=== PATIENT | female | born 1950 | race Two or more races ===

== ENCOUNTER 2024-04-17 09:40 | Day surgery (SDC) | payer MEDICARE, MEDICAID, SELFPAY ==
--- NOTE | 2024-04-13 06:17 | EKG_ITS ---
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
[2024-04-13 08:24] VITALS: BMI 27.4
[2024-04-13 10:17] LABS: Basophils % (Auto) 1 % (0-2.5); Eosinophils # (Auto) 0.1 Thou/mm3 (0.0-0.5); Eosinophils % (Auto) 2 % (0-10); Hematocrit 41.5 % (36.0-46.0); Hemoglobin 14.3 g/dL (12.0-16.0); Immature Granulocytes % (Auto) 0 % (0-0); Immature Granulocytes Auto 0.01 Thou/mm3 (0.00-0.00); Lymphocytes # (Auto) 2.4 Thou/mm3 (1.0-4.8); Lymphocytes % (Auto) 38 % (10-50); Mean Corpuscular HGB Conc 34.5 g/dl (31.0-37.0); Mean Corpuscular Hemoglobin 31.2 pg (25.0-35.0); Mean Corpuscular Volume 91 fL (80-100); Monocytes # (Auto) 0.5 Thou/mm3 (0.0-0.8); Monocytes % (Auto) 8 % (0-12); Neutrophils # (Auto) 3.3 Thou/mm3 (1.8-7.7); Neutrophils % (Auto) 52 % (37-80); Nucleated Red Blood Cell % 0 /100 WBC (0); Platelet Count 198 Thou/mm3 (140-440); RDW Standard Deviation 42.1 fL (36.4-46.3); Red Blood Count 4.58 Miln/mm3 (4.00-5.20); White Blood Count 6.4 Thou/mm3 (3.6-11.0)
[2024-04-13 10:39] LABS: T4 (Thyroxine) 10.5 mcg/dL (4.5-10.9)
[2024-04-13 10:45] LABS: Alanine Aminotransferase 25 U/L (10-49); Albumin/Globulin Ratio 1.9 (1.2-2.2); Alkaline Phosphatase 72 U/L (46-116); Anion Gap 9 (7-16); Aspartate Amino Transferase 13 U/L (0-34); BUN/Creatinine Ratio 19 Ratio (12-20); Bilirubin,Total 0.7 mg/dL (0.3-1.2); Blood Urea Nitrogen 13 mg/dL (9-23); Calcium 10.8 mg/dL (8.3-10.6); Calcium (Corrected) 10.8 mg/dL (8.5-10.1); Carbon Dioxide 24.2 mMol/L (20.0-31.0); Chloride 104 mMol/L (98-107); Creatinine (Component) 0.7 mg/dL (0.6-1.3); Estimated Creatinine Clearance 65.7 mL/min (>60); Globulin 2.6 gm/dL (2.3-3.5); Glucose 103 mg/dL (74-106); Osmolality,Calculated 273 (275-295); Potassium 4.1 mMol/L (3.4-5.1); Sodium 137 mMol/L (136-145); Thyroid Stimulating Hormone 1.29 uIU/mL (0.55-4.78); Total Protein 7.6 gm/dL (5.7-8.2); eGFR > 60 See Note
[2024-04-17] VITALS (17 sets, daily range): BP systolic 125–159; BP diastolic 73–86; PULSE 88–101; RESP 13–20; TEMP 36.2–36.9; O2SAT 94–98; BMI 27.2; BMI 27.8
[2024-04-17] MEDS: RINGERS LACTATED 1000 ML 1,000 ML 20 ML IV (10:19)
--- NOTE | 2024-04-17 10:45 | CHAP ---
Prayed with patient. Family member translated for me.
[2024-04-17] MEDS: SCOPOLAMINE 1 MG TDSY TOP (11:51)
--- NOTE | 2024-04-17 13:26 | SUR.PHASEI ---
pt received from OR in recovery bay 8. pt obtunded, breathing unlabored on oxymask 4l, oral airway in place. v/s stable. pt dressing to neck cdi. report received from Dr. Ruibo and Natalie DELGADO.
--- NOTE | 2024-04-17 13:48 | ESOP_ITS ---
Date of Procedure 04/17/24 Pre Op Diagnosis Bilateral thyroid nodules Post Op Diagnosis Bilateral thyroid nodules Procedure Total thyroidectomy Findings Very enlarged left thyroid lobe displacing trachea slightly to the right. Multiple small nodules on the right lobe Procedure Description Patient brought to the operating room in supine position. After administration of general endotracheal anesthesia, patient's neck was extended and prepped and draped in standard surgical manner. An approximately 6 cm semicircular incision was made approximately 2 fingerbreadths above the sternal notch. Dissection was carried subcutaneous tissue and platysma was divided. Superior and inferior subplatysmal plane were developed. Median raphae was identified and divided. The procedure started on the patient's left where patient was noted to have very large thyroid nodule displacing trachea slightly to the right. The strap muscle on the left side was retracted laterally and the areolar tissue between the strap muscle and the thyroid tissues were divided. The median thyroid vein was identified and ligated. The superior pole vessels were mobilized and divided with 0 silk tie. The inferior vessels were then individually identified and ligated. The recurrent laryngeal nerve on the left side was identified and kept away from dissection proceeded all times. I was able to identify the superior parathyroid gland and preserved it, I was unable to clearly identify the inferior parathyroid gland. Once the vessels were ligated the thyroid was from the anterior surface of the trachea by dividing the ligament of Alberto. I then turned my attention to patient's right side. The thyroid was not enlarged however patient was noted to have multiple small nodules. The procedure performed in similar fashion. Recurrent laryngeal nerve on the right side was identified and preserved. Once again, I was able to identify the super ior parathyroid gland and preserve it, I could not clearly identify the inferior parathyroid gland. The area was copiously thoroughly washed and irrigated, all the fluids were suctioned in the section fluids and clear. Hemostasis was adequate and satisfactory. Topical hemostatic agent snow Surgicel placed on both sides of the neck to further secure hemostasis. Median raphae was then closed with running 2-0 Vicryl. Platysma reapproximated with interrupted sutures using 3-0 Vicryl, and the incision was closed with 4-0 Monocryl subcuticular fashion. Instruments, needle and sponge counts were reported to be correct ?2. Patient tolerated procedure well. She was extubated, breathing spontaneously and without difficulty and was transferred to postanesthesia care in stable condition. Anesthesia GETA and local Pathology / specimen Other (Total thyroid) Estimated Blood Loss 25 Condition Stable Disposition PACU Surgeon Ade Anaya MD Surgical Staff Operation Date: 04/17/24 12:00 Case Staff Anesthesiologist: Terrell Rubio RN First Assistant: Danyelle Charles
[2024-04-17] MEDS: ACETAMINOPHEN IVPB 1,000 MG/100 ML VIAL 250 MG IV (14:06)
[2024-04-17] MEDS: HYDROmorphone INJ 2 MG/ML VIAL 0.4 MG IVP (14:38)
[2024-04-17] MEDS: HYDROmorphone INJ 2 MG/ML VIAL IVP ×2 (15:04→21:03)
--- NOTE | 2024-04-17 17:34 | SUR.PHASEII ---
Report given to Krista DELGADO med/surg. Dressing to neck remain C/D/I. Able to use bedpan for urination, clear yellow urine. No c/o pain or discomfort. No s/o distress or discomfort. Taken to room 359 via bed. Daughter at bedside. Krista DELGADO at bedside. Call light in hand. Bed rails up x2. Bed brake on. Aware to call for assistance OOB.
--- NOTE | 2024-04-17 17:34 | PC.NURSE ---
report received from Nurse Tello from PACU
[2024-04-17] MEDS: SUMAtriptan 25 MG TABLET 50 MG PO (18:39)
--- NOTE | 2024-04-17 21:42 | PC.NURSE ---
patient reported feeling dizziness right after getting dilaudid iv. Pt was assisted to bed. Pt Lying down in bed now.
[2024-04-18] VITALS: BP 126/75; PULSE 111; RESP 16; TEMP 36.4; O2SAT 92
[2024-04-18] MEDS: ACETAMINOPHEN IVPB 1,000 MG/100 ML VIAL 250 MG IV ×2 (00:24→05:33)
[2024-04-18 04:00] VITALS: BP 117/69; PULSE 80; RESP 20; TEMP 36.3; O2SAT 92
[2024-04-18 08:00] VITALS: BP 118/69; PULSE 86; RESP 18; TEMP 36.4; O2SAT 94
[2024-04-18] MEDS: HYDROmorphone INJ 2 MG/ML VIAL IVP (09:06)
--- NOTE | 2024-04-18 11:34 | PD.SURPROG ---
Documentation for date of: 04/18/24 Subjective Subjective Narrative: Patient is seen and examined. She underwent total thyroidectomy yesterday and was kept in the hospital for observation due to pain. Her pain is improving. She is tolerating liquids without nausea or vomiting Exam Vital Signs Temp Pulse Resp BP Pulse Ox O2 Del Method O2 Flow Rate 97.5 F 86 18 118/69 94 L Room Air 2 04/18/24 08:00 04/18/24 08:00 04/18/24 08:00 04/18/24 08:00 04/18/24 08:00 04/18/24 08:00 04/17/24 15:25 Constitutional Constitutional: no acute distress Routine Neck Exam Comments: Incision with dressings clean, dry and intact Assessment & Plan Assessment Additional comments: Postop day #1 status post total thyroidectomy Plan Will discharge home. Procedures Procedures Total thyroidectomy
[2024-04-18 12:00] VITALS: BP 123/71; PULSE 98; RESP 18; TEMP 36.8; O2SAT 94
[2024-04-18 12:24] VITALS: RESP 96
== END 2024-04-18 14:22 | disposition home or self-care (01) ==
LOC: S2EX 14:44 → S3NX 04-18 07:01
PROVIDERS: PCP Family Medicine; Referring Provider Surgery; Visit Provider Surgery
PROC: (CPT 60240; principal; 2024-04-17 11:45)
DX: E04.2 Nontoxic multinodular goiter (principal); Z01.810 Encounter for preprocedural cardiovascular examination
CPT/HCPCS: 60240; 36415; 80053; 84436; 84443; 85025; 93005; A4217; A4649; J0131; J0690; J2250; J2704; J3490; J7120; A9270

== ENCOUNTER 2024-05-11 12:43 | Emergency (ER) | payer MEDICARE, MEDICAID, SELFPAY ==
--- NOTE | 2024-05-11 12:52 | PC.NURSE ---
Pt. states she has a WAITE to the right side of her head.
[2024-05-11 12:55] VITALS: BP 133/83; PULSE 92; RESP 19; TEMP 37.2; O2SAT 95; BMI 26.5
--- NOTE | 2024-05-11 13:01 | XR_ITS ---
Examination: PA view TECHNIQUE: Upright PA single view Exam date and time: May 11, 2024 1327 hours Comparison October 22, 2015 INDICATIONS: Chest pain beginning 3 weeks ago. FINDINGS: Normal heart size Subsegmental atelectasis left base No lobar pneumonia or pulmonary edema Moderate osteopenia IMPRESSION: No lobar pneumonia or pulmonary edema
--- NOTE | 2024-05-11 13:01 | EKG_ITS ---
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
--- NOTE | 2024-05-11 13:03 | PD.EDWEAK ---
ED Weakness RME/HPI General Chief complaint: Weakness Stated complaint: Weak, nausea, dizzy, tired Time Seen by Provider: 05/11/24 12:49 Arrival date/time: 05/11/24 12:43 RME / HPI RME / HPI Narrative: 74-year-old female patient with significant history of hyponatremia in the past, interstitial cystitis, hypothyroidism, gastritis, was brought in by family for evaluation regarding generalized body weakness. Onset of symptoms for the last 1 week's generalized body weakness, on and off nausea, feeling tired, dizzy, severity mild. Family is concerned because she does have thyroidectomy about 3 weeks ago. Currently taking 100 microgram of levothyroxine for more than 2 weeks now. Patient denies any fever denies any sore throat denies any vomiting diarrhea or other complaints. Related Data Home Medications ?Medication ?Instructions ?Recorded ?Confirmed sumatriptan succinate 50 mg tablet 50 mg PO QDAY PRN HEADACHE 08/21/13 04/17/24 (MIGRAINE) ##0 gabapentin 600 mg tablet 600 mg PO BID #0 tabs 09/05/16 04/17/24 pentosan polysulfate sodium 100 mg 100 mg PO TID #0 caps 09/05/16 04/17/24 capsule (Elmiron) celecoxib 200 mg capsule 200 mg PO DAILY 05/02/19 04/17/24 alendronate 70 mg tablet 70 mg PO QWEEK 04/13/24 04/17/24 amlodipine 5 mg tablet 5 mg PO QDAY 04/13/24 04/17/24 loratadine 10 mg tablet 10 mg PO QDAY 04/13/24 04/17/24 meclizine 25 mg tablet 25 mg PO BID PRN Dizziness 04/13/24 04/17/24 pantoprazole 40 mg tablet,delayed 40 mg PO QDAY 04/13/24 04/17/24 release (Protonix) cyclobenzaprine 10 mg tablet 10 mg PO BID PRN Muscle Spasm 04/16/24 04/17/24 Previous Rx's ?Medication ?Instructions ?Recorded acetaminophen 500 mg tablet 1,000 mg (2 x 500 mg) PO Q8HR PRN 04/17/24 (Tylenol Extra Strength) pain (scale score 4-6) #30 tabs calcium carbonate 400 mg PO BID #60 tabs 04/17/24 docusate sodium 100 mg capsule 100 mg PO BID #40 caps 04/17/24 (Colace) hydromorphone 2 mg tablet 2 mg PO Q6H PRN pain #20 tabs 04/17/24 (Dilaudid) levothyroxine 100 mcg tablet 100 mcg PO QDAY #30 tabs 04/17/24 (Synthroid) ondansetron 4 mg disintegrating 4 mg PO Q6H PRN nausea and 04/17/24 tablet vomiting #20 tabs scopolamine base 1 mg over 3 days 1 mg topical Q3D nausea #4 ea 04/18/24 transdermal patch Allergies Allergy/AdvReac Type Severity Reaction Status Date / Time hydrocodone Allergy Intermediate NAUSEA Verified 04/17/24 10:11 carisoprodol Allergy Mild SEVERE Verified 04/17/24 10:11 DIZZINESS AND VOMITNG doxazosin Allergy Mild ITCHING Verified 04/17/24 10:11 fentanyl Allergy Mild Nausea Verified 04/17/24 10:11 tramadol Allergy Mild VOMITNG Verified 04/17/24 10:11 AND ITCHING morphine AdvReac Intermediate Nausea Verified 04/17/24 10:11 codeine AdvReac Mild NAUSEA Verified 04/17/24 10:11 Review of Systems Review of Systems Narrative Review of Systems: Review of system reviewed and within normal limits except mentioned in HPI ED Exam Narrative Physical exam: VITAL SIGNS: Reviewed. GENERAL APPEARANCE: Alert and interactive, follows commands, no acute distress, HEAD AND FACE: Non-traumatic. ENT: PERRL, pink conjunctivitis, eyelid no trauma, Mucous membrane moist. NECK: Supple, nontender, no nuchal rigidity. CHEST: No tenderness, no crepitus, no paradoxical movement, no retractions. LUNGS: Clear, well ventilated, symmetric, no rales, no wheezing, no ronchi, no stridor, good breath sounds bilaterally. HEART: Regular rate, regular rhythm, no murmur, no gallops. ABDOMEN: Soft, positive bowel sounds, nondistended, no guarding, nontender, no rebound, no masses, RECTAL: Deferred. GENITAL: Deferred. NEUROLOGICAL: Gross motor function intact sensory function intact, Appropriate for age. MUSCULOSKELETAL: low back nontender, full range of motion. EXTREMITIES: Nontender, full range of motion. SKIN: Color pink, dry, no rash, no lacerations, no abrasions, no contusions. LYMPHATICS: Deferred. Course Quality Measures none Orders Category Date Time Status Bedside COVID-19 Antigen Test NOW Care 05/11/24 13:01 Active Bedside Influenza A&B Antigen Test NOW Care 05/11/24 13:02 Completed EKG (ED ONLY) *Do not use* NOW Care 05/11/24 13:02 Completed EKG (ED Only) Stat Exams 05/11/24 13:01 Draft XR chest 1V Stat Exams 05/11/24 13:01 Completed B-Type Natriuretic Peptide Stat Lab 05/11/24 13:19 Completed CBC Stat Lab 05/11/24 13:19 Completed Comprehensive Metabolic Panel Stat Lab 05/11/24 13:19 Completed Free T4 (Free Thyroxine) Stat Lab 05/11/24 13:19 Completed Partial Thromboplastin Time Stat Lab 05/11/24 13:19 Completed TSH [Thyroid Stimulating Hormone] Stat Lab 05/11/24 13:19 Completed Troponin I Stat Lab 05/11/24 13:19 Completed Urinalysis, C/S if Indicated Stat Lab 05/11/24 13:35 Completed Ondansetron Odt [Zofran Odt] Med 05/11/24 14:04 Discontinued 4 mg PO X1 ONE mg Hyd/Al Hyd/Markos Susp [Maalox Susp] Med 05/11/24 14:04 Discontinued 30 ml PO X1 ONE Vital Signs Vital signs: Vital Signs Temperature 98.9 F 05/11/24 12:55 Pulse Rate 92 05/11/24 12:55 Respiratory Rate 19 05/11/24 12:55 Blood Pressure 133/83 H 05/11/24 12:55 Pulse Oximetry (%) 95 05/11/24 12:55 Oxygen Delivery Method Room Air 05/11/24 12:55 Weakness MDM Narrative MDM Narrative:: 74-year-old female patient with significant history of hyponatremia in the past, interstitial cystitis, hypothyroidism, gastritis, was brought in by family for evaluation regarding generalized body weakness. Onset of symptoms for the last 1 week's generalized body weakness, on and off nausea, feeling tired, dizzy, severity mild. Family is concerned because she does have thyroidectomy about 3 weeks ago. Currently taking 100 microgram of levothyroxine for more than 2 weeks now. Patient denies any fever denies any sore throat denies any vomiting diarrhea or other complaints. Patient TSH was noted to be 0.04, T4 of 1.84. This results was relayed to patient's PCP, Dr. Venu Ruvalcaba, and told him that patient is currently taking levothyroxine 100 mcg daily however the doctor told me do not adjust medication, and told me to asked the patient to follow-up in the clinic next week so we can repeat the thyroid test. Plan of care discussed with the patient and family. The rest of the laboratory workup all came back normal. I personally reviewed and interpreted the x-ray of this patient. There is no acute abnormalities found, no infiltrates no pneumothorax no hemothorax normal chest x-ray. Review of other structures was without significant abnormal findings also. I additionally reviewed the radiologist report and agree with the interpretation. EKG showed normal sinus rhythm, ventricular rate of 84 bpm, PA interval 139 MS, no ST segment elevation depression noted. Patient data External records reviewed:: None Clinical information provided by:: none Social determinants that could affect healthcare access:: none Patient has the following chronic illnesses:: History of hypothyroidism, interstitial cystitis, gastritis, and hyponatremia How is presenting disease/condition affected by chronic disease/condition?: exacerbated by Evaluation data The following diagnostics were reviewed and interpreted by me:: lab results, radiology exam(s) and EKG tracing(s) Lab and/or radiology exams considered but not ordered:: None Interpretation Summary: See results in [facility] Medications / Prescriptions Medications or Prescriptions considered but not ordered:: None Medication administrations:: Medication Administration History Discontinued Medications Al Hydrox/Mg Hydrox/Simethicone (Mg Hyd/Al Hyd/Markos (Maalox Reg) Susp 30 Ml Udc) 30 ml PO X1 ONE Stop: 05/11/24 14:05 Last Admin: 05/11/24 14:20 Dose: 30 ml Documented By: [facility] Ondansetron HCl (Ondansetron Odt 4 Mg Tabrap) 4 mg PO X1 ONE; Protocol Stop: 05/11/24 14:05 Last Admin: 05/11/24 14:19 Dose: 4 mg Documented By: [facility] Maalox and Zofran Consultations Consultation(s) initiated? (list below): Yes Consultation #1 (Physician, Specialty, Details): I spoke with patient PCP, Dr. Venu Ruvalcaba, thank you DrJose Diagnosis Weakness Differential Diagnosis: anemia, hypothyroidism, dehydration and other (Hyper thyroidism) Most likely diagnosis given after review of the tests above:: Generalized weakness Admission Indicated Admission indicated?: not indicated Admission Request Was there a request for admission?: No Disposition Plan Disposition Plan: Discharge Discharge Attestation Discharge Attestation: The patient and all family members were given an opportunity to ask questions and understood the discharge instructions. Discharge instructions specifically effects, indications for sooner follow up or return to the emergency department, and the expected course of current diagnosis. Patient condition: Stable Discharge Plan Plan Patient Disposition: HOME (Self Care) Disposition Comment: stable Prescriptions/Referrals Prescriptions/Med Rec: No Action sumatriptan succinate 50 MG tablet 50 mg PO QDAY PRN (Reason: HEADACHE (MIGRAINE)) Qty: 0 Elmiron 100 MG capsule 100 mg PO TID Qty: 0 gabapentin 600 MG tablet 600 mg PO BID Qty: 0 celecoxib 200 mg Capsule 200 mg PO DAILY alendronate 70 mg Tablet 70 mg PO QWEEK amlodipine 5 mg Tablet 5 mg PO QDAY meclizine 25 mg Tablet 25 mg PO BID PRN (Reason: Dizziness) pantoprazole [Protonix] 40 mg Tablet,Delayed Release (Dr/Ec) 40 mg PO QDAY loratadine 10 mg Tablet 10 mg PO QDAY cyclobenzaprine 10 mg Tablet 10 mg PO BID PRN (Reason: Muscle Spasm) levothyroxine [Synthroid] 100 mcg tablet 100 mcg PO QDAY Qty: 30 3RF docusate sodium [Colace] 100 mg capsule 100 mg PO BID Qty: 40 0RF calcium carbonate 400 mg calcium (1,000 mg) tablet,chewable 400 mg PO BID Qty: 60 0RF ondansetron 4 mg tablet,disintegrating 4 mg PO Q6H PRN (Reason: nausea and vomiting) Qty: 20 0RF hydromorphone [Dilaudid] 2 mg tablet 2 mg PO Q6H MDD 4 PRN (Reason: pain) Qty: 20 0RF acetaminophen [Tylenol Extra Strength] 500 mg tablet 1,000 mg PO Q8HR PRN (Reason: pain (scale score 4-6)) Qty: 30 0RF scopolamine base 1 mg over 3 days patch 3 day 1 mg topical Q3D Qty: 4 0RF Referrals: Venu Ruvalcaba MD [Primary Care Provider] - In 1 week Problem List Clinical Impression: Weakness Patient/Caregiver Discharge Instructions Discharge Activity: activity as tolerated Education Materials: ED Weakness (Uncertain Cause) Additional Instructions: Thank you for the opportunity for serving you today. You are stable for discharged . You are advised to: Follow-up with your PCP next week Return to ED for worsening of symptoms Increase oral fluids Take medication as prescribed by your PCP/surgeon. Print Language: [place] Stand Alone Forms: Ruth Award Info., Patient Portal Info Letter PA/ASSISTANT PROJECT ENGINEER Supervising Physician PA/ASSISTANT PROJECT ENGINEER Supervising Physician: MD Angela
[2024-05-11 13:42] LABS: B-Type Natriuretic Peptide 22 pg/mL (0-100)
[2024-05-11 13:45] LABS: Basophils % (Auto) 0 % (0-2.5); Eosinophils # (Auto) 0.1 Thou/mm3 (0.0-0.5); Eosinophils % (Auto) 1 % (0-10); Hematocrit 40.4 % (36.0-46.0); Hemoglobin 13.8 g/dL (12.0-16.0); Immature Granulocytes % (Auto) 0 % (0-0); Immature Granulocytes Auto 0.01 Thou/mm3 (0.00-0.00); Lymphocytes # (Auto) 2.5 Thou/mm3 (1.0-4.8); Lymphocytes % (Auto) 33 % (10-50); Mean Corpuscular HGB Conc 34.2 g/dl (31.0-37.0); Mean Corpuscular Hemoglobin 31.1 pg (25.0-35.0); Mean Corpuscular Volume 91 fL (80-100); Monocytes # (Auto) 0.8 Thou/mm3 (0.0-0.8); Monocytes % (Auto) 10 % (0-12); Neutrophils # (Auto) 4.3 Thou/mm3 (1.8-7.7); Neutrophils % (Auto) 56 % (37-80); Nucleated Red Blood Cell % 0 /100 WBC (0); Platelet Count 199 Thou/mm3 (140-440); Red Blood Count 4.44 Miln/mm3 (4.00-5.20); White Blood Count 7.6 Thou/mm3 (3.6-11.0)
[2024-05-11 13:47] LABS: Alanine Aminotransferase 18 U/L (10-49); Albumin, Serum 4.8 gm/dL (3.4-4.8); Albumin/Globulin Ratio 1.8 (1.2-2.2); Alkaline Phosphatase 73 U/L (46-116); Anion Gap 9 (7-16); Aspartate Amino Transferase 17 U/L (0-34); BUN/Creatinine Ratio 27 Ratio (12-20); Bilirubin,Total 0.5 mg/dL (0.3-1.2); Blood Urea Nitrogen 16 mg/dL (9-23); Calcium 10.6 mg/dL (8.3-10.6); Calcium (Corrected) 10.6 mg/dL (8.5-10.1); Carbon Dioxide 24.2 mMol/L (20.0-31.0); Chloride 105 mMol/L (98-107); Creatinine (Component) 0.6 mg/dL (0.6-1.3); Estimated Creatinine Clearance 75.4 mL/min (>60); Free T4 (Free Thyroxine) 1.84 ng/dL (0.89-1.76); Globulin 2.6 gm/dL (2.3-3.5); Glucose 107 mg/dL (74-106); Osmolality,Calculated 276 (275-295); Sodium 138 mMol/L (136-145); Thyroid Stimulating Hormone 0.04 uIU/mL (0.55-4.78); Total Protein 7.4 gm/dL (5.7-8.2); Troponin I < 0.002 ng/mL (0.0-0.045); eGFR > 60 See Note
--- NOTE | 2024-05-11 13:50 | PC.NURSE ---
pt here with c/o generalized weakness, nausea, feeling tired, and abd pain for 7 days. Per family, pt with history of hyponatremia
[2024-05-11 13:52] LABS: Partial Thromboplastin Time 25.6 Seconds (22.0-36.0)
[2024-05-11 14:05] VITALS: BP 130/78; PULSE 80; RESP 16; O2SAT 94
[2024-05-11 14:06] LABS: Collection Type, Urine Clean Catch
[2024-05-11 14:15] LABS: Bilirubin,Urine Negative (Negative); Blood,Urine Trace (Negative); Clarity,Urine Clear (Clear/Hazy); Color,Urine Yellow (Lt Yel-Yel); Culture Indicated,Urine Not Indicated; Glucose, Urine Negative (Negative); Ketones,Urine Negative (Negative); Leukocyte Esterase,Urine Positive (Negative); Nitrite,Urine Negative (Negative); Protein,Urine Trace (Neg - Trace); RBC,Urine 1 /hpf (0-3); Specific Gravity,Urine 1.024 (1.001-1.035); Squamous Epithelial Cell,Urine 2 /hpf (0-5); Urobilinogen,Urine Negative mg/dL (0.0-1.0); WBC,Urine 4 /hpf (0-5)
[2024-05-11] MEDS: ONDANSETRON ODT 4 MG TABRAP PO (14:19)
[2024-05-11] MEDS: MG HYD/AL HYD/SIME (Maalox Reg) SUSP 30 ML UDC PO (14:20)
--- NOTE | 2024-05-11 14:47 | PC.NURSE ---
barbara n/p informed that labs completed
== END 2024-05-11 15:49 | disposition home or self-care (01) ==
PROVIDERS: Nurse Practitioner Family; Emergency Provider Emergency Medicine; PCP Family Medicine
DX: R53.1 Weakness (principal); E03.9 Hypothyroidism, unspecified
CPT/HCPCS: 36415; 71045; 80053; 81001; 83880; 84439; 84443; 84484; 85025; 85730; 87400; 87811; 93005; 99283; Q0162; A9270

== ENCOUNTER 2024-05-16 08:17 | Emergency (ER) | payer MEDICARE, MEDICAID, SELFPAY ==
[2024-05-16 08:18] VITALS: BMI 26.5
--- NOTE | 2024-05-16 08:24 | EKG_ITS ---
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
[2024-05-16 08:34] VITALS: BP 146/84; PULSE 97; RESP 18; TEMP 36.8; O2SAT 98
--- NOTE | 2024-05-16 08:49 | XR_ITS ---
Examination: Shoulder,left, 3 views Technique: Shoulder AP internal rotation, AP external rotation, Y view shoulder, 3 views Exam date and time :May 16, 2024 0855 hours INDICATIONS: Left shoulder pain beginning 4 days ago. FINDINGS: Moderate osteopenia Moderate osteoarthritis glenohumeral joint No fracture or shoulder dislocation IMPRESSION: Moderate osteoarthritis acromioclavicular joint
--- NOTE | 2024-05-16 08:50 | PD.EDRME ---
Rapid Medical Screening Exam E Arrival date/time: 05/16/24 08:17 74-year-old female with a history of a thyroidectomy last month presents to the emergency room with a chief complaint of chest discomfort, left arm numbness, pain x 4 days. I have greeted and performed a focused initial assessment of this patient. A comprehensive ED assessment and evaluation of the patient, analysis of all test results, and completion of the medical decision making process will be conducted by additional ED providers. Chief Complaint: Extremity Problem,Nontraumatic Vital signs: Vital Signs Temperature 98.3 F 05/16/24 08:34 Pulse Rate 97 05/16/24 08:34 Respiratory Rate 18 05/16/24 08:34 Blood Pressure 146/84 H 05/16/24 08:34 Pulse Oximetry (%) 98 05/16/24 08:34 Oxygen Delivery Method Room Air 05/16/24 08:34 Vital signs reviewed by provider: Yes
[2024-05-16 09:14] LABS: Basophils % (Auto) 0 % (0-2.5); Eosinophils # (Auto) 0.1 Thou/mm3 (0.0-0.5); Eosinophils % (Auto) 2 % (0-10); Hematocrit 39.8 % (36.0-46.0); Hemoglobin 13.9 g/dL (12.0-16.0); Immature Granulocytes % (Auto) 0 % (0-0); Immature Granulocytes Auto 0.02 Thou/mm3 (0.00-0.00); Lymphocytes # (Auto) 2.4 Thou/mm3 (1.0-4.8); Lymphocytes % (Auto) 40 % (10-50); Mean Corpuscular HGB Conc 34.9 g/dl (31.0-37.0); Mean Corpuscular Volume 89 fL (80-100); Monocytes # (Auto) 0.5 Thou/mm3 (0.0-0.8); Monocytes % (Auto) 8 % (0-12); Neutrophils % (Auto) 50 % (37-80); Nucleated Red Blood Cell % 0 /100 WBC (0); Platelet Count 212 Thou/mm3 (140-440); RDW Standard Deviation 41.5 fL (36.4-46.3); Red Blood Count 4.49 Miln/mm3 (4.00-5.20); White Blood Count 5.9 Thou/mm3 (3.6-11.0)
[2024-05-16 09:32] LABS: B-Type Natriuretic Peptide < 20 pg/mL (0-100)
[2024-05-16 09:37] LABS: Alanine Aminotransferase 15 U/L (10-49); Albumin, Serum 4.6 gm/dL (3.4-4.8); Albumin/Globulin Ratio 1.5 (1.2-2.2); Alkaline Phosphatase 71 U/L (46-116); Anion Gap 10 (7-16); Aspartate Amino Transferase 19 U/L (0-34); BUN/Creatinine Ratio 17 Ratio (12-20); Bilirubin,Total 0.8 mg/dL (0.3-1.2); Blood Urea Nitrogen 10 mg/dL (9-23); Calcium 10.4 mg/dL (8.3-10.6); Calcium (Corrected) 10.4 mg/dL (8.5-10.1); Carbon Dioxide 21.2 mMol/L (20.0-31.0); Chloride 106 mMol/L (98-107); Creatinine (Component) 0.6 mg/dL (0.6-1.3); Estimated Creatinine Clearance 75.4 mL/min (>60); Glucose 111 mg/dL (74-106); Magnesium 1.8 mg/dL (1.6-2.6); Osmolality,Calculated 273 (275-295); Potassium 3.9 mMol/L (3.4-5.1); Sodium 137 mMol/L (136-145); Thyroid Stimulating Hormone 0.08 uIU/mL (0.55-4.78); Total Protein 7.6 gm/dL (5.7-8.2); Troponin I < 0.002 ng/mL (0.0-0.045); eGFR > 60 See Note
[2024-05-16 10:18] VITALS: BP 144/74; PULSE 80; RESP 22; TEMP 37.2; O2SAT 95
--- NOTE | 2024-05-16 11:18 | PD.EDEXREM ---
ED Extremity Problem RME/HPI General Chief complaint: Extremity Problem,Nontraumatic Stated complaint: LEFT ARM PAIN FOR 4 DAYS Arrival date/time: 05/16/24 08:17 RME / HPI RME / HPI Narrative: 05/16/24 08:17 74-year-old female with a history of a thyroidectomy last month presents to the emergency room with a chief complaint of chest discomfort, left arm numbness, pain x 4 days. I have greeted and performed a focused initial assessment of this patient. A comprehensive ED assessment and evaluation of the patient, analysis of all test results, and completion of the medical decision making process will be conducted by additional ED providers. DR. MORALES MAIN ED EVALUATION 74 year old female with history of thyroidectomy performed [address] Anaya presents to the ED for complaint of left shoulder pain that radiates down her left arm beginning last night and remaining constant since. Described as aching in sensation, rating as severe. Aggravated with any movements of her extremity. Reportedly has had bilateral shoulder tension since her surgery. States at her 2-week follow up appointment with Dr. Anaya she made him aware of symptoms and was advised it was due to not moving her head as she normally would. Patient denies any injury/trauma. Denies chest pain, shortness of breath, cough, or history of similar pain. Related Data Home Medications ?Medication ?Instructions ?Recorded ?Confirmed sumatriptan succinate 50 mg tablet 50 mg PO QDAY PRN HEADACHE 08/21/13 04/17/24 (MIGRAINE) ##0 gabapentin 600 mg tablet 600 mg PO BID #0 tabs 09/05/16 04/17/24 pentosan polysulfate sodium 100 mg 100 mg PO TID #0 caps 09/05/16 04/17/24 capsule (Elmiron) celecoxib 200 mg capsule 200 mg PO DAILY 05/02/19 04/17/24 alendronate 70 mg tablet 70 mg PO QWEEK 04/13/24 04/17/24 amlodipine 5 mg tablet 5 mg PO QDAY 04/13/24 04/17/24 loratadine 10 mg tablet 10 mg PO QDAY 04/13/24 04/17/24 meclizine 25 mg tablet 25 mg PO BID PRN Dizziness 04/13/24 04/17/24 pantoprazole 40 mg tablet,delayed 40 mg PO QDAY 04/13/24 04/17/24 release (Protonix) cyclobenzaprine 10 mg tablet 10 mg PO BID PRN Muscle Spasm 04/16/24 04/17/24 Previous Rx's ?Medication ?Instructions ?Recorded acetaminophen 500 mg tablet 1,000 mg (2 x 500 mg) PO Q8HR PRN 04/17/24 (Tylenol Extra Strength) pain (scale score 4-6) #30 tabs calcium carbonate 400 mg PO BID #60 tabs 04/17/24 docusate sodium 100 mg capsule 100 mg PO BID #40 caps 04/17/24 (Colace) hydromorphone 2 mg tablet 2 mg PO Q6H PRN pain #20 tabs 04/17/24 (Dilaudid) levothyroxine 100 mcg tablet 100 mcg PO QDAY #30 tabs 04/17/24 (Synthroid) ondansetron 4 mg disintegrating 4 mg PO Q6H PRN nausea and 04/17/24 tablet vomiting #20 tabs scopolamine base 1 mg over 3 days 1 mg topical Q3D nausea #4 ea 04/18/24 transdermal patch diazepam 5 mg tablet 5 mg PO BID PRN muscle spasm #6 05/16/24 tabs Allergies Allergy/AdvReac Type Severity Reaction Status Date / Time carisoprodol Allergy Severe SEVERE Verified 05/16/24 08:23 DIZZINESS AND VOMITNG doxazosin Allergy Severe ITCHING Verified 05/16/24 08:23 fentanyl Allergy Severe Nausea Verified 05/16/24 08:23 hydrocodone Allergy Severe NAUSEA Verified 05/16/24 08:23 tramadol Allergy Severe VOMITNG Verified 05/16/24 08:23 AND ITCHING codeine AdvReac Severe NAUSEA Verified 05/16/24 08:23 morphine AdvReac Severe Nausea Verified 05/16/24 08:23 Review of Systems Review of Systems Narrative Review of Systems: Gen: No fever, no chills, no weight loss EYES: No discharge, no visual changes, no pain HEENT: No ear pain, no congestion, no sore throat PULM: no shortness of breath, no cough, no congestion CV: No chest pain, no dyspnea on exertion, no palpitations, no chest tightness GI: No nausea, no vomiting, no diarrhea, no pain, no constipation : No frequency, no urgency,? no dysuria Musc/skel: +bilateral shoulder tension, +left shoulder pain that moves down the left arm, no back pain Skin: No rash, no ecchymosis, no lesions Neuro: No weakness, no headache Past Medical History Past Medical History NEUROLOGIC: Positive Neurological Disorders and Migraine CARDIAC: Positive Cardiac Disorders and Hypertension GASTROINTESTINAL: Positive Gastrointestinal Disorders, Irritable Bowel and Gastroesophageal Reflux Disease GENITOURINARY: Positive Genitourinary Disorders (cystitis) REPRODUCTIVE: Positive Previous Pregnancies MUSCULOSKELETAL: Positive Musculoskeletal Disorders, Arthritis, Osteoporosis and Degenerative Disk Disease ENT: Positive Cataracts PSYCHO/SOCIAL: Positive Depression and Anxiety OTHER HISTORY: Positive Hospitalization (Low sodium), Chicken Pox, Measles and Cancer Family History FAMILY HISTORY: Positive Family Cardiac Disorders, Family Cancer and Family Surgery Surgical History SURGICAL: Positive Hysterectomy and Section Social History SMOKING STATUS: Never smoker ED Exam Narrative Physical exam: GENERAL APPEARANCE: AxOx4, nontoxic appearing, anxious, speaking rapidly and in full sentences. HEENT: NC, AT. MMM. EOMI, clear conjunctiva, oropharynx clear. NECK: Supple without lymphadenopathy. No stiffness or restricted ROM. Lower anterior neck surgical scar that is c/d/i. HEART: Normal rate and regular rhythm, normal S1/S1, no m/r/g LUNGS: CTAB, moving air well. No crackles or wheezes are heard. ABDOMEN: Soft, nontender, nondistended with good bowel sounds heard. BACK: No midline C/T/L spine pain or deformity, No CVAT, no obvious deformity. EXTREMITIES: Without cyanosis, clubbing or edema. MUSCULOSKELETAL: FROM of all major joints, no chest tenderness NEUROLOGICAL: Grossly nonfocal. Alert and oriented, moving all 4 extremities. CN not formally tested but appear grossly intact. Skin: Warm and dry without any rash. Course Quality Measures none Orders Category Date Time Status EKG (ED ONLY) *Do not use* NOW Care 05/16/24 08:24 Completed EKG (ED Only) Stat Exams 05/16/24 08:24 Draft XR shoulder LT min 2V Stat Exams 05/16/24 08:49 Completed B-Type Natriuretic Peptide Stat Lab 05/16/24 09:05 Completed CBC Stat Lab 05/16/24 09:05 Completed Comprehensive Metabolic Panel Stat Lab 05/16/24 09:05 Completed Free T4 (Free Thyroxine) Stat Lab 05/16/24 09:05 Completed Magnesium Stat Lab 05/16/24 09:05 Completed TSH [Thyroid Stimulating Hormone] Stat Lab 05/16/24 09:05 Completed Troponin I Stat Lab 05/16/24 09:05 Completed Diazepam [Valium] Med 05/16/24 10:52 Discontinued 5 mg PO X1 ONE Ibuprofen Tab [Motrin Tab] Med 05/16/24 10:54 Discontinued 800 mg PO X1 ONE Reevaluation(s) Reevaluation #1: We reviewed all the results, analysis, and treatment plans. Patient is amenable to discharge. Strict return precautions were outlined. Patient was discharged in stable condition. Time: 11:10 Vital Signs Vital signs: Vital Signs Temperature 98.3 F 05/16/24 08:34 Pulse Rate 97 05/16/24 08:34 Respiratory Rate 18 05/16/24 08:34 Blood Pressure 146/84 H 05/16/24 08:34 Pulse Oximetry (%) 98 05/16/24 08:34 Oxygen Delivery Method Room Air 05/16/24 08:34 Pulse ox is 98% on room air which is adequate. Extremity Problem MDM Narrative MDM Narrative:: Yaritza Pritchard am scribing for and in the presence of Dr. Morales. Patient data External records reviewed:: [facility] previous records (I reviewed ED visit on 05/11/2024) Clinical information provided by:: patient and family Social determinants that could affect healthcare access:: none Patient has the following chronic illnesses:: Hypertension, s/p thyroidectomy 1 month ago How is presenting disease/condition affected by chronic disease/condition?: exacerbated by Evaluation data The following diagnostics were reviewed and interpreted by me:: lab results, radiology exam(s) and EKG tracing(s) (Sinus rhythm, rate 86, normal axis, normal intervals, no acute ST or T-wave changes, no STEMI. ) Lab and/or radiology exams considered but not ordered:: None Interpretation Summary: Ordering Physician: Antonio Mendiola Date of Service: 05/16/24 Procedure(s): XR shoulder LT min 2V Accession Number(s): [id number] cc: Antonio Mendiola; Venu Ruvalcaba MD; Santiago Rivera MD~ Examination: Shoulder,left, 3 views Technique: Shoulder AP internal rotation, AP external rotation, Y view shoulder, 3 views Exam date and time :May 16, 2024 0855 hours INDICATIONS: Left shoulder pain beginning 4 days ago. FINDINGS: Moderate osteopenia Moderate osteoarthritis glenohumeral joint No fracture or shoulder dislocation IMPRESSION: Moderate osteoarthritis acromioclavicular joint Dictated By:Santiago Rivera MD Signed By:<Electronically signed by Santiago Rivera MD in OV>05/16/24 0950 Medications / Prescriptions Medications or Prescriptions considered but not ordered:: None Medication administrations:: Medication Administration History Discontinued Medications Diazepam (Diazepam 5 Mg Tablet) 5 mg PO X1 ONE Stop: 05/16/24 10:53 Last Admin: 05/16/24 11:20 Dose: 5 mg Documented By: CHARU Ibuprofen (Ibuprofen Tab 400 Mg Tablet) 800 mg PO X1 ONE Stop: 05/16/24 10:55 Last Admin: 05/16/24 11:20 Dose: 800 mg Documented By: CHARU See above Consultations Consultation(s) initiated? (list below): No Diagnosis Most likely diagnosis given after review of the tests above:: Neck muscle strain Chest pain Admission Indicated Admission indicated?: not indicated Admission Request Was there a request for admission?: No Disposition Plan Disposition Plan: Discharge Discharge Attestation Discharge Attestation: The patient and all family members were given an opportunity to ask questions and understood the discharge instructions. Discharge instructions specifically effects, indications for sooner follow up or return to the emergency department, and the expected course of current diagnosis. Patient condition: Stable Discharge Plan Plan Patient Disposition: HOME (Self Care) Prescriptions/Referrals Prescriptions/Med Rec: New diazepam 5 mg tablet 5 mg PO BID PRN (Reason: muscle spasm) Qty: 6 0RF No Action sumatriptan succinate 50 MG tablet 50 mg PO QDAY PRN (Reason: HEADACHE (MIGRAINE)) Qty: 0 Elmiron 100 MG capsule 100 mg PO TID Qty: 0 gabapentin 600 MG tablet 600 mg PO BID Qty: 0 celecoxib 200 mg Capsule 200 mg PO DAILY alendronate 70 mg Tablet 70 mg PO QWEEK amlodipine 5 mg Tablet 5 mg PO QDAY meclizine 25 mg Tablet 25 mg PO BID PRN (Reason: Dizziness) pantoprazole [Protonix] 40 mg Tablet,Delayed Release (Dr/Ec) 40 mg PO QDAY loratadine 10 mg Tablet 10 mg PO QDAY cyclobenzaprine 10 mg Tablet 10 mg PO BID PRN (Reason: Muscle Spasm) levothyroxine [Synthroid] 100 mcg tablet 100 mcg PO QDAY Qty: 30 3RF docusate sodium [Colace] 100 mg capsule 100 mg PO BID Qty: 40 0RF calcium carbonate 400 mg calcium (1,000 mg) tablet,chewable 400 mg PO BID Qty: 60 0RF ondansetron 4 mg tablet,disintegrating 4 mg PO Q6H PRN (Reason: nausea and vomiting) Qty: 20 0RF hydromorphone [Dilaudid] 2 mg tablet 2 mg PO Q6H MDD 4 PRN (Reason: pain) Qty: 20 0RF acetaminophen [Tylenol Extra Strength] 500 mg tablet 1,000 mg PO Q8HR PRN (Reason: pain (scale score 4-6)) Qty: 30 0RF scopolamine base 1 mg over 3 days patch 3 day 1 mg topical Q3D Qty: 4 0RF Referrals: Venu Ruvalcaba MD [Primary Care Provider] - In 1 week Problem List Clinical Impression: Neck muscle strain, Chest pain Patient/Caregiver Discharge Instructions Education Materials: ED Chest Pain, Uncertain Cause, ED Neck Sprain or Strain Additional Instructions: Viet un seguimiento con gallegos m?dico de atenci?n primaria seg?n lo programado. Puede informarles que se completaron las pruebas de laboratorio en xochilt 2 visitas al departamento de emergencias para gallegos revisi?n. Puede regresar al departamento de emergencias antes si los s?ntomas empeoran o si nota alg?n problema nuevo que le preocupe. Print Language: Maori Stand Alone Forms: Ruth Award Info., Patient Portal Info Letter
[2024-05-16] MEDS: IBUPROFEN TAB 400 MG TABLET 800 MG PO (11:20)
[2024-05-16] MEDS: DIAZEPAM 5 MG TABLET PO ×2 (11:20→12:55)
[2024-05-16 12:00] VITALS: BP 100/64; PULSE 81; RESP 20; TEMP 37.2; O2SAT 97
[2024-05-16] MEDS: ACETAMINOPHEN 325 MG TABLET 650 MG PO (12:56)
[2024-05-16 14:00] VITALS: BP 115/68; PULSE 81; RESP 19; TEMP 36.7; O2SAT 97
--- NOTE | 2024-05-16 14:14 | XR_ITS ---
Examination: CTA chest with intravenous contrast 2-D reconstructions 3-D reconstructions, vascular Date and time of exam: May 16, 2024 1548 hours INDICATIONS: Onset chest pain shortness of breath today CTDI: vol (mGy) 14.2 DLP: (mGycm) 3 Technique: Multiple axial sections of the thorax have been obtained. 3 mm slice thickness, from below the hemidiaphragms to above the apices of the lungs. Mediastinal and lung density settings have been obtained. 2-D sagittal and coronal reconstructions. 3-D angiographic renderings, 3-D volume renderings, 3D post processing, vascular maximum intensity projections obtained. Contrast administered is 100 cc Isovue-370. Low dose protocols were performed. One or more of the following dose reduction techniques were used; automated exposure control, adjustment of the mA and/or KV according to patient size, use of iterative reconstruction technique. Findings: Possible 14 mm hematoma in the left thyroid bed No thoracic aortic aneurysmal dilatation No pulmonary artery emboli No paratracheal tracheobronchial or bronchopulmonary adenopathy No pneumonia or pulmonary edema or pleural disease No visualized liver or splenic lesion No gallstones IMPRESSION: Negative for pulmonary artery emboli No pneumonia, pulmonary edema or pleural disease
--- NOTE | 2024-05-16 14:14 | XR_ITS ---
Examination: CT soft tissue neck, with intravenous contrast. 2-D coronal reconstructions. 2-D sagittal reconstructions. Date and time of exam :May 16, 2024 1458 hours INDICATIONS: Recent thyroidectomy this month with neck pain today. CTDI: vol (mGy):9.53 DLP: (mGycm):451 Technique: 1.25 mm axial sections of the neck of the obtained. Coronal and sagittal reconstructions have been obtained. Intravenous contrast administered 100 cc Isovue-370 Low dose protocols were performed. One or more of the following dose reduction techniques were used; automated exposure control, adjustment of the mA and/or KV according to patient size, use of iterative reconstruction technique. Findings: Symmetrical nasopharynx oropharynx Symmetrical submandibular glands No laryngeal mass Minimal soft tissue in the left thyroid bed, 14 mm, axial image 59 Subglottic region unremarkable IMPRESSION: Recommend ultrasound soft tissue neck 2 confirm small hematoma in the left thyroid bed
== END 2024-05-16 16:53 | disposition home or self-care (01) ==
PROVIDERS: Nurse Practitioner Family; Emergency Provider Emergency Medicine; PCP Family Medicine
DX: S16.1XXA Strain of muscle, fascia and tendon at neck level, initial encounter (principal); R07.9 Chest pain, unspecified; M19.012 Primary osteoarthritis, left shoulder; I10 Essential (primary) hypertension; Z90.89 Acquired absence of other organs; X58.XXXA Exposure to other specified factors, initial encounter
CPT/HCPCS: 36415; 70491; 71275; 73030; 80053; 83735; 83880; 84439; 84443; 84484; 85025; 93005; 99285; A4649; Q9967; A9270

== ENCOUNTER → 2024-08-28 | Outpatient (CLI) | payer MEDICARE, MEDICAID, SELFPAY ==
--- NOTE | 2024-08-28 08:45 | XR_ITS ---
Examination: Screening digital mammography, bilateral Computer aided detection 3-D breast Tomosynthesis, bilateral Date and time of exam: August 28, 2024 0845 hours Compared to mammograms dating to July 21, 2017 Indication: Screening Technique: Nonmagnified MLO, CC views of the breasts to been obtained, reconstructed from 3-D Tomosynthesis images. R2 computer aided detection program utilized for evaluation of suspicious masses and/or abnormal calcifications. 3-D Tomosynthesis images obtained. Findings: Scattered areas of fibroglandular density No definite change in circumscribed nodule upper outer left breast compared to prior studies Impression: BI-RADS Category 0: Incomplete: Need additional imaging evaluation Recommend left breast sonography follow-up to further characterize circumscribed nodule upper outer left breast, 10 mm
== END | disposition home or self-care (01) ==
LOC: CDIM 08:35
PROVIDERS: Referring Provider Family Medicine; Visit Provider Family Medicine
DX: Z12.31 Encounter for screening mammogram for malignant neoplasm of breast (principal); R92.8 Other abnormal and inconclusive findings on diagnostic imaging of breast
CPT/HCPCS: 77063; 77067

== ENCOUNTER → 2024-09-24 | Outpatient (CLI) | payer MEDICARE, MEDICAID, SELFPAY ==
--- NOTE | 2024-09-24 15:30 | XR_ITS ---
Examination: Breast ultrasound, unilateral, left Date and time of exam: September 24, 2024 1528 hours INDICATIONS: History breast cystic disease Technique: Real-time bledsoe scale ultrasonographic imaging performed left breast including all 4 quadrants as well as nipple retroareolar and axillary region. Findings: 3:00 nodule 6 x 8 x 3 mm circumscribed IMPRESSION: BI-RADS Category 3: Probably benign findings One additional 6 month left breast sonogram follow-up recommended to document stability of nodule described above
== END | disposition home or self-care (01) ==
LOC: CDIM 15:13
PROVIDERS: PCP Family Medicine; Referring Provider Family Medicine; Visit Provider Family Medicine
DX: N63.21 Unspecified lump in the left breast, upper outer quadrant (principal)
CPT/HCPCS: 76641

== ENCOUNTER → 2024-12-31 | Outpatient (CLI) | payer MEDICARE, MEDICAID, SELFPAY ==
[2024-12-31 08:43] LABS: Misc Send Out* See Sep Rpt
[2024-12-31 09:39] LABS: Vitamin B12 438 pg/mL (211-911); Vitamin D 25 Hydroxy Total 28.3 ng/mL (7.3-40.2)
[2024-12-31 09:48] LABS: Alanine Aminotransferase 20 U/L (10-49); Albumin, Serum 4.5 gm/dL (3.4-4.8); Albumin/Globulin Ratio 1.7 (1.2-2.2); Alkaline Phosphatase 64 U/L (46-116); Anion Gap 11 (7-16); Aspartate Amino Transferase 18 U/L (0-34); BUN/Creatinine Ratio 13 Ratio (12-20); Bilirubin,Total 0.7 mg/dL (0.3-1.2); Blood Urea Nitrogen 9 mg/dL (9-23); Calcium 10.3 mg/dL (8.3-10.6); Calcium (Corrected) 10.3 mg/dL (8.5-10.1); Carbon Dioxide 19.8 mMol/L (20.0-31.0); Cardiac Risk Estimate 3.1 RATIO (3.7-5.6); Chloride 101 mMol/L (98-107); Cholesterol 200 mg/dL (132-200); Creatinine (Component) 0.7 mg/dL (0.6-1.3); Free T4 (Free Thyroxine) 2.02 ng/dL (0.89-1.76); Globulin 2.6 gm/dL (2.3-3.5); Glucose 94 mg/dL (74-106); HDL Cholesterol 65 mg/dL (40-60); LDL Cholesterol,Calculated 110 mg/dL (0-130); Osmolality,Calculated 263 (275-295); Potassium 4.3 mMol/L (3.4-5.1); Sodium 132 mMol/L (136-145); Thyroid Stimulating Hormone 2.72 uIU/mL (0.55-4.78); Total Protein 7.1 gm/dL (5.7-8.2); Triglycerides 125 mg/dL (30-150); eGFR > 60 See Note
[2024-12-31 14:47] LABS: Basophils # (Auto) 0.0 Thou/mm3 (0.0-0.2); Basophils % (Auto) 0 % (0-2.5); Eosinophils # (Auto) 0.1 Thou/mm3 (0.0-0.5); Eosinophils % (Auto) 1 % (0-10); Hematocrit 43.5 % (36.0-46.0); Hemoglobin 15.1 g/dL (12.0-16.0); Immature Granulocytes Auto 0.10 Thou/mm3 (0.00-0.00); Lymphocytes # (Auto) 3.1 Thou/mm3 (1.0-4.8); Lymphocytes % (Auto) 27 % (10-50); Mean Corpuscular HGB Conc 34.7 g/dl (31.0-37.0); Mean Corpuscular Hemoglobin 31.5 pg (25.0-35.0); Mean Corpuscular Volume 91 fL (80-100); Monocytes # (Auto) 1.2 Thou/mm3 (0.0-0.8); Monocytes % (Auto) 10 % (0-12); Neutrophils # (Auto) 7.2 Thou/mm3 (1.8-7.7); Neutrophils % (Auto) 62 % (37-80); Nucleated Red Blood Cell # 0.00 Thou/mm3 (0.00-0.00); Nucleated Red Blood Cell % 0 /100 WBC (0); Platelet Count 259 Thou/mm3 (140-440); RDW Standard Deviation 42.1 fL (36.4-46.3); Red Blood Count 4.79 Miln/mm3 (4.00-5.20); White Blood Count 11.6 Thou/mm3 (3.6-11.0)
[2025-01-05 15:36] LABS: Thyroglobulin Antibodies <1 IU/mL (< OR = 1)
[2025-01-07 07:16] LABS: Thyroid Peroxidase Antibodies* <1 IU/mL (<9); Vitamin D,1,25 (OH)2,Total 94 pg/mL (18-72); Vitamin D3, 1,25 (OH)2 43 pg/mL; Zinc, Plasma* 83 mcg/dL (60-130)
[2025-01-07 07:17] LABS: TSI, Thyroid Stimulating Ig* <89 % baseline (<140); Thyroglobulin <0.1 ng/mL; Vitamin D2, 1,25 (OH)2 51 pg/mL
== END | disposition home or self-care (01) ==
LOC: COPL 08:08
PROVIDERS: PCP Family Medicine; Referring Provider Internal Medicine Endocrinology, Diabetes & Metabolism; Visit Provider Internal Medicine Endocrinology, Diabetes & Metabolism
DX: E03.9 Hypothyroidism, unspecified (principal)
CPT/HCPCS: 36415; 80053; 80061; 82306; 82607; 82652; 84432; 84439; 84443; 84445; 84630; 85025; 86376; 86800

== ENCOUNTER → 2025-02-11 | Outpatient (CLI) | payer MEDICARE, MEDICAID, SELFPAY ==
[2025-02-11 09:30] LABS: Basophils # (Auto) 0.0 Thou/mm3 (0.0-0.2); Basophils % (Auto) 0 % (0-2.5); Eosinophils # (Auto) 0.1 Thou/mm3 (0.0-0.5); Eosinophils % (Auto) 1 % (0-10); Hematocrit 41.2 % (36.0-46.0); Hemoglobin 13.9 g/dL (12.0-16.0); Immature Granulocytes Auto 0.02 Thou/mm3 (0.00-0.00); Lymphocytes # (Auto) 2.1 Thou/mm3 (1.0-4.8); Lymphocytes % (Auto) 38 % (10-50); Mean Corpuscular HGB Conc 33.7 g/dl (31.0-37.0); Mean Corpuscular Hemoglobin 31.6 pg (25.0-35.0); Mean Corpuscular Volume 94 fL (80-100); Monocytes # (Auto) 0.4 Thou/mm3 (0.0-0.8); Monocytes % (Auto) 8 % (0-12); Neutrophils # (Auto) 2.8 Thou/mm3 (1.8-7.7); Neutrophils % (Auto) 52 % (37-80); Nucleated Red Blood Cell # 0.00 Thou/mm3 (0.00-0.00); Nucleated Red Blood Cell % 0 /100 WBC (0); Platelet Count 195 Thou/mm3 (140-440); RDW Standard Deviation 43.8 fL (36.4-46.3); Red Blood Count 4.40 Miln/mm3 (4.00-5.20); White Blood Count 5.4 Thou/mm3 (3.6-11.0)
[2025-02-11 09:46] LABS: Alanine Aminotransferase 15 U/L (10-49); Albumin, Serum 4.7 gm/dL (3.4-4.8); Albumin/Globulin Ratio 2.1 (1.2-2.2); Alkaline Phosphatase 62 U/L (46-116); Anion Gap 9 (7-16); Aspartate Amino Transferase 18 U/L (0-34); BUN/Creatinine Ratio 17 Ratio (12-20); Bilirubin,Total 0.6 mg/dL (0.3-1.2); Blood Urea Nitrogen 10 mg/dL (9-23); Calcium 10.0 mg/dL (8.3-10.6); Calcium (Corrected) 10.0 mg/dL (8.5-10.1); Carbon Dioxide 25.3 mMol/L (20.0-31.0); Chloride 105 mMol/L (98-107); Creatinine (Component) 0.6 mg/dL (0.6-1.3); Free T3 3.0 pg/mL (2.3-4.2); Free T4 (Free Thyroxine) 1.95 ng/dL (0.89-1.76); Globulin 2.2 gm/dL (2.3-3.5); Glucose 101 mg/dL (74-106); Osmolality,Calculated 276 (275-295); Potassium 4.1 mMol/L (3.4-5.1); Sodium 139 mMol/L (136-145); Thyroid Stimulating Hormone 0.83 uIU/mL (0.55-4.78); Total Protein 6.9 gm/dL (5.7-8.2); eGFR > 60 See Note
[2025-02-11 09:51] LABS: Ferritin 44 ng/mL (7.3-270.7); Iron 122 mcg/dL (50-170)
[2025-02-11 10:00] LABS: Folate > 24.00 ng/mL (>5.38)
[2025-02-14 06:46] LABS: ACTH, Plasma* 5 pg/mL (6-50)
[2025-02-18 06:41] LABS: ANA Screen, IFA NEGATIVE (NEGATIVE); Cortisol,total,LC/MS/MS* 7.8 mcg/dL; DHEA Sulfate* 32 mcg/dL (7-177); DNA (ds) Antibody* <1 IU/mL; Testosterone, Free,Dialysis 1.1 pg/mL (0.2-3.7); Testosterone, Total, Dialysis 13 ng/dL (2-45)
== END | disposition home or self-care (01) ==
LOC: COPL 08:27
PROVIDERS: PCP Family Medicine; Referring Provider Internal Medicine Endocrinology, Diabetes & Metabolism; Visit Provider Internal Medicine Endocrinology, Diabetes & Metabolism
DX: R94.6 Abnormal results of thyroid function studies (principal); E03.9 Hypothyroidism, unspecified; Z90.89 Acquired absence of other organs
CPT/HCPCS: 36415; 80053; 82024; 82533; 82627; 82728; 82746; 83540; 84402; 84403; 84439; 84443; 84481; 85025; 86038; 86225